=== PATIENT | female | born 1955 | race Caucasian/White ===

== ENCOUNTER → 2016-04-30 | Outpatient (CLI) | payer MEDICARE ==
[~2016-04-30] MED LIST: ACETAMINOPHEN650 M3 PO; ADRENOID CAPSU1 EACH PO; AMITRYPTYLINE; AMITRYPTYLINE PO; AUGMENTIN; BACTRIM DS TABL1 TA1 PO; BACTRIM DS TABL1 TAB PO; CELEXA; CELEXA PO; CLEOCIN PO; EC-NAPROSYN500 MG; ERY-TAB500 MG PO; ERYTHROMYCIN250 M1 PO; FLEXERIL PO; HYDROCODON-ACE1 EAC5 PO; KEFLEX PO; LASIX; LASIX PO; LASIX80 MG PO; LEVAQUIN PO; LEVAQUIN750 MG PO; LISINOPRIL; LISINOPRIL PO; LOPRESSOR; LOPRESSOR PO; LORTAB 10-5001 EACH PO; MEDROL DOSE PAK; MEDROL DOSEPAK4 MG DOB; MEDROL PO; NAPROSYN-EC500 M1 PO; NAPROXEN PO; NAPROXEN250 MG PO; NEURONTIN; NEURONTIN PO; NEURONTIN800 MG DOB; NEURONTIN800 MG PO; NORVASC PO; NORVASC10 MG; NORVASC10 MG PO; PERCOCET5/325 PO; PREDNISONE10 MG PO; PRINIVIL40 MG PO; PROZAC10 MG PO; PROZAC40 MG DOB; PROZAC40 MG PO; ROBAXIN500 MG; SKELAXIN PO; TETRACYCLINE PO; TOBRADEX EYE DRO5 ML OU; ULTRAM PO; VIBRAMYCIN100 M1 PO; VICODIN 5/500 T1 TAB PO; VICODIN PO; VITAL-D RX TABL1 TAB PO; VOLTAREN50 MG PO; ZESTRIL40 MG PO
--- NOTE | ~2016-04-30 | BD1 ---
[facility] A Service of [facility] & [facility] RADIOLOGY TEXT RESULTS PATIENT: HERMAN BUCK LOCATION: [facility] : 57 UNIT #: [id number] AGE: [address]: YONAS MARTINS SEX: F ORDER DR: [id number] [facility] [address] [place], [place] [address] [id number] O MR#: [id number] Acc #: [id number] NAME: HERMAN BUCK. : 1955 SEX: F STUDY DATE/TIME: 04/30/2016 17:09 UNIT: [facility] ROOM: STUDY DESCRIPTION: BD Dexa Bone Dens 1+ Site Attending Physician: Ying Whittaker Ordering Physician: Ying Whittaker Primary Care Physician: Nette Irby M.D. MEDICAL IMAGING REPORT This report is preliminary unless electronic signature is present EXAM Bone density scan spine/hip, 04/30/2016. HISTORY Postmenopause. Family history of osteoporosis in father and sisters. TECHNIQUE Bone density scanning performed upper 4 lumbar vertebral segments and left femur. COMPARISON STUDIES No comparison. FINDINGS Patient is a 376-pound female, 60 years of age. Bone mineral density upper 4 lumbar vertebral segments overall is 1.051 g/cm2 for a T-score 0 standard deviations from mean for a reference population of normal young individuals and a Z-score 1.4 standard deviations above the mean for an age-matched population. Left proximal femur bone mineral density is 1.058 g/cm2 for a T-score 1.0 standard deviation above mean for a reference population normal young individuals and a Z-score 1.9 standard deviations above the mean for an age-match population. In the left femoral neck specifically, bone mineral density is 0.710 g/cm2 for a T-score 1.3 standard deviations below mean for a reference population normal young individuals and Z-score 0 standard deviation from the mean for age-matched population. IMPRESSION Osteopenia in the left femoral neck. Patient felt to be at increased risk for fracture. Treatment options may be considered. Continued surveillance is recommended. [facility] A Service of [facility] & [facility] RADIOLOGY TEXT RESULTS PATIENT: HERMAN BUCK LOCATION: [facility] : 57 UNIT #: [id number] AGE: [address]: YONAS MARTINS SEX: F ORDER DR: Dictated by... Junior Cavazos M.D. THIS IS AN ELECTRONICALLY VERIFIED REPORT Junior Cavazos M.D. at 05/01/2016 7:54 PM BERTHA/ford TD: 05/01/2016 15:42 JOB #: [id number] MEDICAL IMAGING REPORT Page 1 of 1 COPY
--- NOTE | ~2016-04-30 | MY11 ---
[facility] A Service [facility] RADIOLOGY TEXT RESULTS PATIENT: HERMAN BUCK LOCATION: [facility] : 57 UNIT #: [id number] AGE: [address]: YONAS MARTINS SEX: F ORDER DR: [id number] [facility] [address] [place], [place] [address] [id number] O MR#: [id number] Acc #: [id number] NAME: HERMAN BUCK. : 1955 SEX: F STUDY DATE/TIME: 04/30/2016 16:42 UNIT: [facility] ROOM: STUDY DESCRIPTION: MY Mammogram Screening [facility] Attending Physician: Ying Whittaker Ordering Physician: Ying Whittaker Primary Care Physician: Nette Irby M.D. MEDICAL IMAGING REPORT This report is preliminary unless electronic signature is present EXAM Digital screening mammogram. DATE OF EXAM 04/30/2016 LOCATION [facility]. HISTORY 60-year-old woman positive family history, aunt age 59. Previous image-guided right breast biopsy. Annual screen. COMPARISON 04/19/2009, 10/14/2012. TECHNIQUE Digital imaging of each breast was completed utilizing screening protocol. Review includes FDA-approved CAD device. FINDINGS Breast parenchyma is fatty replaced. Small oval nodule stable mid outer right breast with an adjacent biopsy marker noted. There is no interval occurring breast mass. There are no suspicious microcalcifications and no architectural deformity. IMPRESSION Negative mammogram. Annual screening recommended. Patients over the age of 40 are entered into a reminder system with target due date for the next mammogram. A result letter will also be sent to the patient. [facility] A Service [facility] RADIOLOGY TEXT RESULTS PATIENT: HERMAN BUCK LOCATION: [facility] : 57 UNIT #: [id number] AGE: [address]: YONAS MARTINS SEX: F ORDER DR: BIRADS: 1 Negative. Dictated by... Lionel Serrano M.D. THIS IS AN ELECTRONICALLY VERIFIED REPORT Lionel Serrano M.D. at 05/04/2016 8:01 AM AMARILYS/bobby TD: 05/01/2016 16:40 JOB #: [id number] MEDICAL IMAGING REPORT Page 1 of 1 COPY
== END | disposition home or self-care (01) ==
LOC: CWCC 16:10
DX: Z12.31 Encounter for screening mammogram for malignant neoplasm of breast (principal); Z78.0 Asymptomatic menopausal state; Z80.3 Family history of malignant neoplasm of breast; M85.88 Other specified disorders of bone density and structure, other site; Z98.890 Other specified postprocedural states
CPT/HCPCS: 77080; G0202

== ENCOUNTER → 2016-07-08 | Day surgery (SDC) | payer MEDICARE ==
--- NOTE | ~2016-07-08 | OR ---
Unit #: [id number] #: [id number] Patient: HERMAN BUCK [id number] [address] [address] [id number] O MR#: [id number] NAME: HERMAN BUCK. ROOM: Date of Procedure: 07/08/2016 Admission Date: 07/08/2016 Surgeon: Ugo Marti M.D. : 1955 Attending Physician: Ugo Marti M.D. Primary Care Physician: Nette Irby M.D. OPERATIVE REPORT PROCEDURE PERFORMED Colonoscopy with biopsy to cecum. INDICATIONS FOR PROCEDURE A 61-year-old female with average risk for colorectal cancer, here for screening colonoscopy. MEDICATIONS Monitored anesthesia. POSTOPERATIVE FINDINGS Small polyp, rectum, 2 to 3 mm, removed using biopsy forceps. The rest of the exam to cecum was normal. Mild diverticulosis noted. PLAN If adenomatous, repeat colonoscopy in 5 years. DESCRIPTION OF PROCEDURE The patient was explained of the procedure, risks, and benefits along with risks and benefits of anesthesia. She was brought to the endoscopy room. Propofol anesthesia was given. Rectal exam was done, which was normal. Colonoscope was lubricated, passed up the rectum, advanced under direct vision all the way to the cecum. Cecum was identified by ileocecal valve and appendiceal orifice. I then started to pull the scope out carefully looking. Small polyp seen in the rectum was removed using biopsy forceps. I retroflexed in the rectum. Small hemorrhoids seen. The scope was gently pulled out. She tolerated it well. No major complications. Dictated by... Robbin Restrepo/j carlos TD: 07/08/2016 15:08 JOB #: [id number] Unit #: [id number] #: [id number] Patient: HERMAN BUCK OPERATIVE REPORT Page 1 of 1 X Ugo Marti MD X PROCEDURE OPERATIVE NOTE
== END | disposition home or self-care (01) ==
LOC: COPS 08:31
DX: Z12.11 Encounter for screening for malignant neoplasm of colon (principal); K62.1 Rectal polyp; K57.30 Diverticulosis of large intestine without perforation or abscess without bleeding; K64.9 Unspecified hemorrhoids; I10 Essential (primary) hypertension; K21.9 Gastro-esophageal reflux disease without esophagitis; F32.9 Major depressive disorder, single episode, unspecified; E66.01 Morbid (severe) obesity due to excess calories; G47.30 Sleep apnea, unspecified; Z68.43 Body mass index [BMI] 50.0-59.9, adult; Z88.0 Allergy status to penicillin; Z88.1 Allergy status to other antibiotic agents; Z88.8 Allergy status to other drugs, medicaments and biological substances; Z91.040 Latex allergy status; Z86.73 Personal history of transient ischemic attack (TIA), and cerebral infarction without residual deficits; Z79.899 Other long term (current) drug therapy; Z96.653 Presence of artificial knee joint, bilateral; Z90.49 Acquired absence of other specified parts of digestive tract; Z98.51 Tubal ligation status; Z98.890 Other specified postprocedural states
CPT/HCPCS: 88305; J2250